=== PATIENT | male | born 1965 | race Caucasian/White ===

== ENCOUNTER 2016-08-27 11:00 | Emergency (ER) | payer OTHER ==
[~2016-08-27] VITALS: Ht 180.3 cm; Wt 87.3 kg
[~2016-08-27 11:00] MED LIST: ALLE60TA PO; ALLO300T2 PO; [UNRECOGNIZED DRUG - CODE] PO
[2016-08-27 11:09] VITALS: BP 154/97; PULSE 83; RESP 18; TEMP 98.1; O2SAT 98
[2016-08-27] MEDS ORDERED: HYDR-3516 PO (11:15)
[2016-08-27] MEDS ORDERED: ALLE60TA PO (11:15)
[2016-08-27] MEDS ORDERED: ALLO300T2 PO (11:15)
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
[2016-08-27] MEDS ORDERED: LIDOCAINE HCL 1% 50 ML VIAL INFIL ONE (11:30)
== END 2016-08-27 12:16 | disposition home or self-care (01) ==
LOC: PHEFT 11:00
DX: S61.211A Laceration without foreign body of left index finger without damage to nail, initial encounter (principal); W45.8XXA Other foreign body or object entering through skin, initial encounter; Y93.89 Activity, other specified; Y92.89 Other specified places as the place of occurrence of the external cause
CPT/HCPCS: 12001